=== PATIENT | male | born 1950 | race African-American/Black ===

== ENCOUNTER 2022-04-20 09:38 | Inpatient (IN) | payer MEDICARE ==
--- NOTE | 2022-04-20 10:25 | ED ---
General Adult HPI - General Chief complaint: Headache Stated complaint: Menengitis, Sent from urgent care Time Seen by Provider: 04/20/22 10:03 Source: patient Mode of arrival: ambulatory Limitations: no limitations - History of Present Illness Initial comments: Dictation was produced using [employer] dictation software. please excuse any grammatical, word or spelling errors. Chief Complaint: 71-year-old male past medical history multiple myeloma and alleged 16 bouts of meningitis presents to the emergency room for headache and back pain History of Present Illness: 71-year-old male who states he used to live in [place]. He moved to [place]. He is a poor historian. He is back in town from [place] visiting family. Patient reports that he has headache and back pain when he ambulates. 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 Patient states he had most recently had meningitis in January of this year. Patient states that he has a holocranial headache. He also is having some back pain. States that is worse when the ambulance. Denies any fever or chills or constitutional symptoms. Denies any neck pain or neck stiffness. No numbness and paresthesias to the arms or legs. No vision loss. The ROS documented in this emergency department record has been reviewed and confirmed by me. Those systems with pertinent positive or negative responses have been documented in the HPI. All other systems are other negative and/or noncontributory. PHYSICAL EXAM: General Impression: Alert and oriented x3, not in acute distress HEENT: Normocephalic atraumatic, extra-ocular movements intact, pupils equal and reactive to light bilaterally, mucous membranes moist. 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 Physical examination does not suggest meningitis. is at the bedside. More history obtained from . She reports that patient has in fact had meningitis multiple occasions. She states that his symptoms are typical for when he was diagnosed with meningitis. Patient signed consent for lumbar puncture however during the lumbar puncture set up process he did have lower back surgical incision that appeared to be well-healed. Patient states that he has a story of lumbar fusion. Given history of surgical incision around the area of lumbar puncture site, history of immune compromise did not feel it was safe to perform a lumbar puncture in emergency department at the bedside is significant concern that his symptoms are classic for his usual viral meningitis. Patient started acyclovir. Pending discussion with infectious disease however patient will be admitted with consultation to ID. EKG interpretation: Ventricular rate 91, sinus rhythm . UT interval 207, QRS 105, QTC 406. No UT prolongation, no QTC prolongation. T-wave inversions in lateral precordial leads. No old EKG for comparison. Overall, this EKG is nonspecific - Related Data Home Medications Medication Instructions Recorded Confirmed Acetaminophen [Tylenol Extra 1,000 mg PO Q6H PRN 04/20/22 04/20/22 Strength] Albuterol Inhaler [Ventolin Hfa 2 puff INHALATION RT-Q6H PRN 04/20/22 04/20/22 Inhaler] Aspirin EC [Ecotrin Low Dose] 81 mg PO HS 04/20/22 04/20/22 Cholecalciferol [Vitamin D3 (25 50 mcg PO W/LUNCH 04/20/22 04/20/22 Mcg = 1000 Iu)] DULoxetine HCL [Cymbalta] 60 mg PO DAILY 04/20/22 04/20/22 Insulin Glargine,Hum.rec.anlog 24 units SQ HS 04/20/22 04/20/22 [Lantus Solostar Pen] Insulin Lispro [Insulin Lispro See Protocol SQ AC-TID PRN 04/20/22 04/20/22 Abimael U-100] Losartan [Cozaar] 50 mg PO DAILY 04/20/22 04/20/22 Multivit-Min/Folic/Vit K/Lycop 1 tab PO W/LUNCH 04/20/22 04/20/22 [Men's Multivitamin Tablet] Oxycodone Myristate [Xtampza ER] 27 mg PO BID 04/20/22 04/20/22 Pantoprazole Sodium [Protonix] 40 mg PO DAILY 04/20/22 04/20/22 Pravastatin Sodium [Pravachol] 40 mg PO HS 04/20/22 04/20/22 Pregabalin [Lyrica] 200 mg PO TID 04/20/22 04/20/22 Semaglutide [Ozempic] 1 mg SQ TU 04/20/22 04/20/22 Zinc 50 mg PO W/LUNCH 04/20/22 04/20/22 amLODIPine [Norvasc] 10 mg PO DAILY 04/20/22 04/20/22 oxyCODONE-APAP 10-325MG [Percocet 1 tab PO BID 04/20/22 04/20/22 10-325 mg] oxyCODONE-APAP 10-325MG [Percocet 2 tab PO DAILY@1200 04/20/22 04/20/22 10-325 mg] Allergies Allergy/AdvReac Type Severity Reaction Status Date / Time NSAIDS (Non-Steroidal Allergy Unknown Verified 04/20/22 12:57 Anti-Inflamma Review of Systems ROS Statement: Those systems with pertinent positive or pertinent negative responses have been documented in the HPI. ROS Other: All systems not noted in ROS Statement are negative. Past Medical History Past Medical History: Cancer, Diabetes Mellitus, Hyperlipidemia, Hypertension Additional Past Medical History / Comment(s): Viral Meningitis, multiple myeloma History of Any Multi-Drug Resistant Organisms: None Reported Past Surgical History: Back Surgery, Orthopedic Surgery Additional Past Surgical History / Comment(s): knee surgery Past Psychological History: No Psychological Hx Reported Smoking Status: Current every day smoker Past Alcohol Use History: None Reported Past Drug Use History: None Reported General Exam Limitations: no limitations Course Vital Signs 04/20/22 04/20/22 04/20/22 09:45 10:25 10:30 Temperature 98.4 F 98.1 F Pulse Rate 98 82 85 Respiratory 18 16 16 Rate Blood Pressure 126/71 128/81 128/81 O2 Sat by Pulse 98 97 96 Oximetry 04/20/22 04/20/22 04/20/22 11:00 11:30 12:00 Temperature Pulse Rate 86 87 86 Respiratory 16 16 16 Rate Blood Pressure 138/73 135/81 135/74 O2 Sat by Pulse 97 97 97 Oximetry Medical Decision Making - Lab Data Result diagrams: 04/20/22 10:17 04/20/22 10:17 Lab Results 04/20/22 04/20/22 04/20/22 Range/Units 10:17 10:17 10:17 WBC 5.6 (3.8-10.6) k/uL RBC 3.58 L (4.30-5.90) m/uL Hgb 11.4 L (13.0-17.5) gm/dL Hct 35.9 L (39.0-53.0) % MCV 100.2 H (80.0-100.0) fL MCH 32.0 (25.0-35.0) pg MCHC 31.9 (31.0-37.0) g/dL RDW 14.9 (11.5-15.5) % Plt Count 128 L (150-450) k/uL MPV 8.4 Neutrophils % 63 % Lymphocytes % 24 % Monocytes % 9 % Eosinophils % 1 % Basophils % 1 % Neutrophils # 3.5 (1.3-7.7) k/uL Lymphocytes # 1.4 (1.0-4.8) k/uL Monocytes # 0.5 (0-1.0) k/uL Eosinophils # 0.1 (0-0.7) k/uL Basophils # 0.0 (0-0.2) k/uL Macrocytosis Slight ESR 35 H (0-15) mm/hr PT 10.8 (9.0-12.0) sec INR 1.0 (<1.2) APTT 26.2 (22.0-30.0) sec Sodium 135 L (137-145) mmol/L Potassium 3.8 (3.5-5.1) mmol/L Chloride 101 (98-107) mmol/L Carbon Dioxide 23 (22-30) mmol/L Anion Gap 11 mmol/L BUN 7 L (9-20) mg/dL Creatinine 0.62 L (0.66-1.25) mg/dL Est GFR (CKD-EPI)AfAm >90 (>60 ml/min/1.73 sqM) Est GFR (CKD-EPI)NonAf >90 (>60 ml/min/1.73 sqM) Glucose 148 H (74-99) mg/dL Plasma Lactic Acid Partha (0.7-2.0) mmol/L Calcium 8.6 (8.4-10.2) mg/dL Magnesium 2.1 (1.6-2.3) mg/dL Total Bilirubin 0.9 (0.2-1.3) mg/dL AST 24 (17-59) U/L ALT 14 (4-49) U/L Alkaline Phosphatase 49 (38-126) U/L C-Reactive Protein 1.6 H (<1.0) mg/dL Total Protein 7.0 (6.3-8.2) g/dL Albumin 4.2 (3.5-5.0) g/dL 04/20/22 Range/Units 10:17 WBC (3.8-10.6) k/uL RBC (4.30-5.90) m/uL Hgb (13.0-17.5) gm/dL Hct (39.0-53.0) % MCV (80.0-100.0) fL MCH (25.0-35.0) pg MCHC (31.0-37.0) g/dL RDW (11.5-15.5) % Plt Count (150-450) k/uL MPV Neutrophils % % Lymphocytes % % Monocytes % % Eosinophils % % Basophils % % Neutrophils # (1.3-7.7) k/uL Lymphocytes # (1.0-4.8) k/uL Monocytes # (0-1.0) k/uL Eosinophils # (0-0.7) k/uL Basophils # (0-0.2) k/uL Macrocytosis ESR (0-15) mm/hr PT (9.0-12.0) sec INR (<1.2) APTT (22.0-30.0) sec Sodium (137-145) mmol/L Potassium (3.5-5.1) mmol/L Chloride (98-107) mmol/L Carbon Dioxide (22-30) mmol/L Anion Gap mmol/L BUN (9-20) mg/dL Creatinine (0.66-1.25) mg/dL Est GFR (CKD-EPI)AfAm (>60 ml/min/1.73 sqM) Est GFR (CKD-EPI)NonAf (>60 ml/min/1.73 sqM) Glucose (74-99) mg/dL Plasma Lactic Acid Partha 0.7 (0.7-2.0) mmol/L Calcium (8.4-10.2) mg/dL Magnesium (1.6-2.3) mg/dL Total Bilirubin (0.2-1.3) mg/dL AST (17-59) U/L ALT (4-49) U/L Alkaline Phosphatase (38-126) U/L C-Reactive Protein (<1.0) mg/dL Total Protein (6.3-8.2) g/dL Albumin (3.5-5.0) g/dL Disposition Clinical Impression: Headache, History of viral meningitis Disposition: ADMITTED IP TO THIS HOSP Condition: Fair Referrals: Nonstaff,Physician [Primary Care Provider] - 1-2 days Decision Time: 13:15
[2022-04-20 10:53] LABS: Basophils % (A) 1 %; Eosinophils # (A) 0.1 k/uL (0-0.7); Eosinophils % (A) 1 %; HCT 35.9 % (39.0-53.0); HGB 11.4 gm/dL (13.0-17.5); Lymphocytes # (A) 1.4 k/uL (1.0-4.8); Lymphocytes % (A) 24 %; MCHC 31.9 g/dL (31.0-37.0); MCV 100.2 fL (80.0-100.0); Macrocytosis Slight; Mean Platelet Volume 8.4; Monocytes # (A) 0.5 k/uL (0-1.0); Monocytes % (A) 9 %; Neutrophils # (A) 3.5 k/uL (1.3-7.7); Neutrophils % (A) 63 %; Platelet Count 128 k/uL (150-450); RBC 3.58 m/uL (4.30-5.90); RDW 14.9 % (11.5-15.5); WBC 5.6 k/uL (3.8-10.6)
--- NOTE | 2022-04-20 11:01 | CT ---
EXAMINATION TYPE: CT brain wo con CT DLP: 1151.4 mGycm, Automated exposure control for dose reduction was used. DATE OF EXAM: 04/20/2022 10:56 AM COMPARISON: None. CLINICAL INDICATION:Male, 71 years old with history of headache, PALM, fever, back pain. H/O Meningitis and Mult. Myeloma TECHNIQUE: Brain: Multiple axial CT images of the brain were obtained without IV contrast. Coronal sagittal refo rmats reviewed. FINDINGS: Brain: Extra-axial spaces: No abnormal extra-axial fluid collections. Ventricular system: Within normal limits Cerebral parenchyma: No acute intraparenchymal hemorrhage or mass effect. The billy-white junction is well differentiated. Cerebellum: Unremarkable. Mass effect: No evidence of midline shift. Intracranial vasculature: Atherosclerotic calcifications of the intracranial vessels. Soft tissues: Normal. Calvarium/osseous structures: No depressed skull fracture. Paranasal sinuses and mastoid air cells: Clear. Sclerotic focus within the right frontal sinus likely represents a benign osteoma. Visualized orbits: Right aphakia IMPRESSION: No acute intracranial process.
[2022-04-20 11:06] LABS: ALT 14 U/L (4-49); AST 24 U/L (17-59); African American GFR (CKD) >90 (>60 ml/min/1.73 sqM); Albumin 4.2 g/dL (3.5-5.0); Alkaline Phosphatase 49 U/L (38-126); Anion Gap 11 mmol/L; Blood Urea Nitrogen 7 mg/dL (9-20); C Reactive Protein 1.6 mg/dL (<1.0); Calcium 8.6 mg/dL (8.4-10.2); Carbon Dioxide 23 mmol/L (22-30); Chloride 101 mmol/L (98-107); Glucose 148 mg/dL (74-99); Magnesium 2.1 mg/dL (1.6-2.3); Non-African American GFR(CKD) >90 (>60 ml/min/1.73 sqM); Potassium 3.8 mmol/L (3.5-5.1); Sodium 135 mmol/L (137-145); Total Bilirubin 0.9 mg/dL (0.2-1.3)
[2022-04-20 11:08] LABS: Partial Thromboplastin Time 26.2 sec (22.0-30.0); Prothrombin Time 10.8 sec (9.0-12.0)
--- NOTE | 2022-04-20 11:29 | XR ---
EXAMINATION TYPE: XR spine complete AP and Lat DATE OF EXAM: 04/20/2022 11:14 AM INDICATION: Patient age:Male; 71 years old; Reason for study: back pain; PHH. COMPARISON: Lumbar spine radiograph 10/02/2010 TECHNIQUE: Frontal, lateral, odontoid projections of the cervical spine. Frontal and lateral projecti ons of the thoracic and lumbar spine. FINDINGS: Postsurgical changes with bilateral pedicular screws and rods and disc graphs involving L3-L5. Hardwa re appears intact. No evidence of acute fracture. Vertebral body heights are maintained. Multilevel d isc space narrowing, end plate sclerosis, and osteophytosis involving the cervical, thoracic, and lum bar spine. Odontoid appears intact. Reversal of the normal cervical lordosis. Grade 1 anterolisthesis of L2 on L3. Multilevel facet arthropathy. Vascular sclerosis. Visualized lungs are clear. Right chest port identified with tip terminating at t he superior cavoatrial junction. IMPRESSION: 1. No acute osseous pathology. 2. Moderate degenerative changes of the visualized spine. 3. Postsurgical fusion changes of the lumbar spine from L3 through L5. Hardware appears intact. 4. Grade 1 anterolisthesis of L2 on L3.
[2022-04-20] MEDS ORDERED: ACYCLOVIR 400 MG/10 ML CUP PO SCH (12:15)
[2022-04-20 12:32] LABS: Erythrocyte Sedimentation Rate 35 mm/hr (0-15)
[2022-04-20] MEDS ORDERED: NALOXONE 0.4 MG/ML 1 ML VIAL IV PRN (13:13)
[2022-04-20] MEDS ORDERED: ACETAMINOPHEN TAB 325 MG TAB PO PRN (13:13)
[2022-04-20] MEDS ORDERED: SODIUM CHLORIDE 0.9% 1,000 ML IV STA (13:15)
[2022-04-20] MEDS: SODIUM CHLORIDE 0.9% 1,000 ML IV SCH (14:16)
[2022-04-20] MEDS: ACYCLOVIR SODIUM 800 MG in SODIUM CHLORIDE 0.9% 100 ML IV SCH ×2 (14:16→21:13)
[2022-04-20] MEDS ORDERED: ALBUTEROL NEBULIZED 2.5 MG/3 ML INHALATION PRN (15:16)
[2022-04-20] MEDS: PREGABALIN 100 MG CAP PO SCH ×2 (16:43→21:11)
[2022-04-20] MEDS: ACETAMINOPHEN TAB 500 MG TAB PO PRN (16:43)
--- NOTE | 2022-04-20 19:17 | P.HPIM ---
History of Present Illness H&P Date: 04/20/22 Chief Complaint: Headache 71-year-old male patient with history of multiple myeloma, and history of multiple bouts of meningitis presents to ED with complaint of headache and back pain; patient reports that he used to live in [place] but moved to [place] and is back in town visiting his family; reports that headache and back pain started a couple days ago and gets worse when he ambulates; patient reports that he was diagnosed with viral meningitis on 16 occasions in the past with most recent episode in January of this year Patient denies any fever or chills denies any neck pain or stiffness or any vision changes; no numbness in arms or legs; patient is a very poor historian so most of the history is obtained from records from ER Blood work completed in the ER reveals a WBC of 5.6, hemoglobin of 11.4 and platelet count of 128, sodium 135 culture is intubated, BUN/creatinine of 7/0.6 and blood glucose of 148 X-ray of the spine reveals no acute osseous pathology; moderate degenerative changes along with postsurgical fusion changes of the lumbar spine from L3 through L5 with intact hardware; grade 1 anterolisthesis of L2 and L3 Head CT is negative for any acute intracranial process Lumbar puncture was not attempted in ED due to surgical fusion in the lumbar spine - Patient is admitted to the hospital for further treatment and evaluation by infectious disease Review of Systems REVIEW OF SYSTEMS: CONSTITUTIONAL: No fever, no malaise, no fatigue. HEENT: No recent visual problems or hearing problems. Denied any sore throat. CARDIOVASCULAR: No chest pain, orthopnea, PND, no palpitations, no syncope. PULMONARY: No shortness of breath, no cough, no hemoptysis. GASTROINTESTINAL: No diarrhea, no nausea, no vomiting, no abdominal pain. NEUROLOGICAL: No headaches, no weakness, no numbness. HEMATOLOGICAL: Denies any bleeding or petechiae. GENITOURINARY: Denies any burning micturition, frequency, or urgency. MUSCULOSKELETAL/RHEUMATOLOGICAL: Denies any joint pain, swelling, or any muscle pain. ENDOCRINE: Denies any polyuria or polydipsia. The rest of the 14-point review of systems is negative. Past Medical History Past Medical History: Cancer, Diabetes Mellitus, Hyperlipidemia, Hypertension Additional Past Medical History / Comment(s): Viral Meningitis, multiple myeloma History of Any Multi-Drug Resistant Organisms: None Reported Past Surgical History: Back Surgery, Orthopedic Surgery Additional Past Surgical History / Comment(s): knee surgery Past Psychological History: No Psychological Hx Reported Smoking Status: Current every day smoker Past Alcohol Use History: None Reported Past Drug Use History: None Reported Medications and Allergies Home Medications Medication Instructions Recorded Confirmed Type Acetaminophen [Tylenol Extra 1,000 mg PO Q6H PRN 04/20/22 04/20/22 History Strength] Albuterol Inhaler [Ventolin Hfa 2 puff INHALATION RT-Q6H PRN 04/20/22 04/20/22 History Inhaler] Aspirin EC [Ecotrin Low Dose] 81 mg PO HS 04/20/22 04/20/22 History Cholecalciferol [Vitamin D3 (25 50 mcg PO W/LUNCH 04/20/22 04/20/22 History Mcg = 1000 Iu)] DULoxetine HCL [Cymbalta] 60 mg PO DAILY 04/20/22 04/20/22 History Insulin Glargine,Hum.rec.anlog 24 units SQ HS 04/20/22 04/20/22 History [Lantus Solostar Pen] Insulin Lispro [Insulin Lispro See Protocol SQ AC-TID PRN 04/20/22 04/20/22 History Kwikpen U-100] Losartan [Cozaar] 50 mg PO DAILY 04/20/22 04/20/22 History Multivit-Min/Folic/Vit K/Lycop 1 tab PO W/LUNCH 04/20/22 04/20/22 History [Men's Multivitamin Tablet] Oxycodone Myristate [Xtampza ER] 27 mg PO BID 04/20/22 04/20/22 History Pantoprazole Sodium [Protonix] 40 mg PO DAILY 04/20/22 04/20/22 History Pravastatin Sodium [Pravachol] 40 mg PO HS 04/20/22 04/20/22 History Pregabalin [Lyrica] 200 mg PO TID 04/20/22 04/20/22 History Semaglutide [Ozempic] 1 mg SQ TU 04/20/22 04/20/22 History Zinc 50 mg PO W/LUNCH 04/20/22 04/20/22 History amLODIPine [Norvasc] 10 mg PO DAILY 04/20/22 04/20/22 History oxyCODONE-APAP 10-325MG [Percocet 1 tab PO BID 04/20/22 04/20/22 History 10-325 mg] oxyCODONE-APAP 10-325MG [Percocet 2 tab PO DAILY@1200 04/20/22 04/20/22 History 10-325 mg] Allergies Allergy/AdvReac Type Severity Reaction Status Date / Time NSAIDS (Non-Steroidal Allergy Unknown Verified 04/20/22 12:57 Anti-Inflamma Physical Exam Vitals: Vital Signs Temp Pulse Resp BP Pulse Ox 04/20/22 14:20 90 16 128/68 97 04/20/22 12:00 86 16 135/74 97 04/20/22 11:30 87 16 135/81 97 04/20/22 11:00 86 16 138/73 97 04/20/22 10:30 85 16 128/81 96 04/20/22 10:25 98.1 F 82 16 128/81 97 04/20/22 09:45 98.4 F 98 18 126/71 98 Intake and Output 04/20/22 04/20/22 04/20/22 06:59 14:59 22:59 Other: Weight 87.543 kg General Impression: Alert and oriented x3, not in acute distress HEENT: Normocephalic atraumatic, extra-ocular movements intact, pupils equal and reactive to light bilaterally, mucous membranes moist. Cardiovascular: Heart regular rate and rhythm Chest: Able to complete full sentences, no retractions, no tachypnea Abdomen: abdomen soft, non-tender, non-distended, no organomegaly Musculoskeletal: Pulses present and equal in all extremities, no peripheral edema Motor: no focal deficits noted Neurological: CN II-XII grossly intact, no focal motor or sensory deficits noted, negative Lhermitte's, negative Brudzinski's, negative Kernig's Skin: Intact with no visualized rashes Psych: Normal affect and mood Results CBC & Chem 7: 04/20/22 10:17 04/20/22 10:17 Labs: Abnormal Lab Results - Last 24 Hours (Table) 04/20/22 04/20/22 Range/Units 10:17 10:17 RBC 3.58 L (4.30-5.90) m/uL Hgb 11.4 L (13.0-17.5) gm/dL Hct 35.9 L (39.0-53.0) % MCV 100.2 H (80.0-100.0) fL Plt Count 128 L (150-450) k/uL ESR 35 H (0-15) mm/hr Sodium 135 L (137-145) mmol/L BUN 7 L (9-20) mg/dL Creatinine 0.62 L (0.66-1.25) mg/dL Glucose 148 H (74-99) mg/dL C-Reactive Protein 1.6 H (<1.0) mg/dL Assessment and Plan Assessment: 1. Intractable headache; rule out meningitis - Patient has been placed on IV acyclovir from ED which we will continue; we will observe isolation precautions - Consult ID for evaluation and further recommendations on viral meningitis 2. Diabetes mellitus controlled with insulin/neuropathy; we will continue with home dose of Lantus at 24 units subcu daily at bedtime; monitor Accu-Cheks before meals and at bedtime with insulin sliding scale; - Continue with home dose of Lyrica at 200 mg by mouth 3 times a day 3. Hypertension; amlodipine 10 mg daily, losartan 50 mg daily 4. History of multiple myeloma; absent patient follow-up DVT prophylaxis; SCDs CODE STATUS; full
[2022-04-20 19:20] LABS: Appearance,CSF Clear; CSF Tube Number 4; CSF Tube Volume 2; Red Blood Cell,CSF 8 u/L (0-10)
[2022-04-20 19:21] LABS: Nucleated Cells, CSF 318 u/L (0-5)
--- NOTE | 2022-04-20 19:27 | P.PCN ---
Date of Procedure: 04/20/22 Procedure(s) Performed: Preoperative diagnosis: Meningitis Post operative diagnoses: Meningitis Procedure= lumbar puncture Anesthesia= local infiltration with lidocaine 1% 3 mL. Condition: Guarded Complication: none. Description of the procedure procedure risk and benefits discussed with the patient and family, consent signed. Patient and the procedure area placed in sitting position, back prepped with chlorhexidine 3 times been local infiltration of the skin and subcutaneous tissue with lidocaine 1% 3 mL for skin and subcu interstitial frustrations at L4 5 levels then 22-gauge Quincke-type needle advanced slowly at L4- 5 interlaminar space there was positive cerebrospinal fluid which was clear, no heme, no paresthesia ,total of 8 ML of clear cerebrospinal fluid collected in 4 different tubes 2 mL in each, then the needle removed and a Band-Aid applied and patient tolerated the procedure well without any complications.
[2022-04-20 19:37] LABS: Glucose,CSF 49 mg/dL (40-70); Total Protein,CSF 201 mg/dL (12-60)
[2022-04-20 19:48] LABS: Diff, Total Cells Cnt, CSF 100; Mononuclear WBC,CSF 95 %; Polynuclear WBC,CSF 5 %
[2022-04-20] MEDS ORDERED: OXYCODONE MYRISTATE 27 MG PO SCH (21:00)
[2022-04-20] MEDS: OXYCODONE MYRISTATE 27 MG PO SCH (21:11)
[2022-04-20] MEDS: PRAVASTATIN SODIUM 40 MG TAB PO SCH (21:11)
[2022-04-20] MEDS: ASPIRIN 81 MG PO SCH (21:11)
[2022-04-20] MEDS: INSULIN DETEMIR (LEVEMIR) 100 UNIT/ML SYR SQ SCH (21:12)
[2022-04-20] MEDS: oxyCODONE-APAP 10-325MG 1 EACH TAB PO SCH (21:13)
[2022-04-20 21:23] LABS: Glucose,Whole Blood 124 mg/dL (70-110)
--- NOTE | 2022-04-20 23:24 | P.CONS ---
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 last episode has been about a month ago for the patient was treated at [place], patient has been brought back to the [place] and apparently has been feeling weak complaining of headache and becoming lethargic and less responsive for the patient was brought into the hospital concerning for another episode of meningitis there is history of a low-grade fever and the patient did have a temperature of 100.5 F this afternoon, patient did have a normal white count creatinine was normal liver enzymes were normal patient did have a CT of the brain that was negative for any bleed patient was empirically started on acyclovir has been admitted to hospital infectious disease was consulted for further management of antibiotic therapy most of the information has been obtained from talking to the as the patient was elevated good historian Review of Systems Positive points has been mentioned in HPI complete review could not be obtained because of his underlying mental status Past Medical History Past Medical History: Cancer, Diabetes Mellitus, Hyperlipidemia, Hypertension Additional Past Medical History / Comment(s): Viral Meningitis, multiple myeloma History of Any Multi-Drug Resistant Organisms: None Reported Past Surgical History: Back Surgery, Orthopedic Surgery Additional Past Surgical History / Comment(s): knee surgery Past Psychological History: No Psychological Hx Reported Smoking Status: Current every day smoker Past Alcohol Use History: None Reported Past Drug Use History: None Reported Medications and Allergies Home Medications Medication Instructions Recorded Confirmed Type Acetaminophen [Tylenol Extra 1,000 mg PO Q6H PRN 04/20/22 04/20/22 History Strength] Albuterol Inhaler [Ventolin Hfa 2 puff INHALATION RT-Q6H PRN 04/20/22 04/20/22 History Inhaler] Aspirin EC [Ecotrin Low Dose] 81 mg PO HS 04/20/22 04/20/22 History Cholecalciferol [Vitamin D3 (25 50 mcg PO W/LUNCH 04/20/22 04/20/22 History Mcg = 1000 Iu)] DULoxetine HCL [Cymbalta] 60 mg PO DAILY 04/20/22 04/20/22 History Insulin Glargine,Hum.rec.anlog 24 units SQ HS 04/20/22 04/20/22 History [Lantus Solostar Pen] Insulin Lispro [Insulin Lispro See Protocol SQ AC-TID PRN 04/20/22 04/20/22 History Kwikpen U-100] Losartan [Cozaar] 50 mg PO DAILY 04/20/22 04/20/22 History Multivit-Min/Folic/Vit K/Lycop 1 tab PO W/LUNCH 04/20/22 04/20/22 History [Men's Multivitamin Tablet] Oxycodone Myristate [Xtampza ER] 27 mg PO BID 04/20/22 04/20/22 History Pantoprazole Sodium [Protonix] 40 mg PO DAILY 04/20/22 04/20/22 History Pravastatin Sodium [Pravachol] 40 mg PO HS 04/20/22 04/20/22 History Pregabalin [Lyrica] 200 mg PO TID 04/20/22 04/20/22 History Semaglutide [Ozempic] 1 mg SQ TU 04/20/22 04/20/22 History Zinc 50 mg PO W/LUNCH 04/20/22 04/20/22 History amLODIPine [Norvasc] 10 mg PO DAILY 04/20/22 04/20/22 History oxyCODONE-APAP 10-325MG [Percocet 1 tab PO BID 04/20/22 04/20/22 History 10-325 mg] oxyCODONE-APAP 10-325MG [Percocet 2 tab PO DAILY@1200 04/20/22 04/20/22 History 10-325 mg] Allergies Allergy/AdvReac Type Severity Reaction Status Date / Time NSAIDS (Non-Steroidal Allergy Unknown Verified 04/20/22 12:57 Anti-Inflamma Physical Exam Vitals: Vital Signs Temp Pulse Resp BP Pulse Ox 04/20/22 14:20 90 16 128/68 97 04/20/22 12:00 86 16 135/74 97 04/20/22 11:30 87 16 135/81 97 04/20/22 11:00 86 16 138/73 97 04/20/22 10:30 85 16 128/81 96 04/20/22 10:25 98.1 F 82 16 128/81 97 09/04/22 09:45 98.4 F 98 18 126/71 98 Intake and Output 04/20/22 04/20/22 04/20/22 06:59 14:59 22:59 Other: Weight 87.543 kg GENERAL DESCRIPTION: Elderly male lying in bed, no distress. No tachypnea or accessory muscle of respiration use. HEENT: Shows Pallor , no scleral icterus. Oral mucous membrane is dry. No ph aryngeal erythema or thrush NECK: Trachea central, no thyromegaly. LUNGS: Unlabored breathing. Clear to auscultation anteriorly. No wheeze or crackle. HEART: S1, S2, regular rate and rhythm. No loud murmur ABDOMEN: Soft, no tenderness , guarding or rigidity, no organomegaly EXTREMITIES: No edema of feet. SKIN: No rash, no masses palpable. NEUROLOGICAL: The patient is lethargic orientation couldn't be determined Results CBC & Chem 7: 04/20/22 10:17 04/20/22 10:17 Labs: Abnormal Lab Results - Last 24 Hours (Table) 04/20/22 04/20/22 Range/Units 10:17 10:17 RBC 3.58 L (4.30-5.90) m/uL Hgb 11.4 L (13.0-17.5) gm/dL Hct 35.9 L (39.0-53.0) % MCV 100.2 H (80.0-100.0) fL Plt Count 128 L (150-450) k/uL ESR 35 H (0-15) mm/hr Sodium 135 L (137-145) mmol/L BUN 7 L (9-20) mg/dL Creatinine 0.62 L (0.66-1.25) mg/dL Glucose 148 H (74-99) mg/dL C-Reactive Protein 1.6 H (<1.0) mg/dL Assessment and Plan Plan: 1patient presented to hospital with a low-grade fever headache in this patient who do have a 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 2we will obtain anesthesia consult to obtain CSF examination which should be sent for glucose protein cell count differential and HSV DNA by PCR 3continue with empiric acyclovir while waiting for the work-up to be completed We will follow on clinical condition and cultures to further adjust medication if needed Thank you for this consultation will follow this patient along with you Time with Patient: Greater than 30
[2022-04-21] MEDS: ACYCLOVIR SODIUM 800 MG in SODIUM CHLORIDE 0.9% 100 ML IV SCH ×3 (05:34→21:50)
[2022-04-21] MEDS: ACETAMINOPHEN TAB 500 MG TAB PO PRN ×2 (05:34→17:04)
[2022-04-21 06:54] LABS: ALT 13 U/L (4-49); AST 21 U/L (17-59); African American GFR (CKD) >90 (>60 ml/min/1.73 sqM); Albumin 3.8 g/dL (3.5-5.0); Albumin/Globulin Ratio 1.4; Alkaline Phosphatase 50 U/L (38-126); Anion Gap 10 mmol/L; Blood Urea Nitrogen 8 mg/dL (9-20); C Reactive Protein 1.3 mg/dL (<1.0); Calcium 8.2 mg/dL (8.4-10.2); Carbon Dioxide 23 mmol/L (22-30); Chloride 103 mmol/L (98-107); Globulin 2.7 g/dL; Glucose 158 mg/dL (74-99); Non-African American GFR(CKD) >90 (>60 ml/min/1.73 sqM); Potassium 3.4 mmol/L (3.5-5.1); Sodium 136 mmol/L (137-145); Total Bilirubin 0.7 mg/dL (0.2-1.3); Total Protein 6.5 g/dL (6.3-8.2)
[2022-04-21 07:19] LABS: Glucose,Whole Blood 139 mg/dL (70-110)
[2022-04-21 09:15] LABS: Basophils # (A) 0.04 X 10*3/uL (0.00-0.10); Basophils % (A) 0.8 %; Eosinophils # (A) 0.07 X 10*3/uL (0.04-0.35); Eosinophils % (A) 1.3 %; HCT 32.9 % (39.6-50.0); HGB 10.9 g/dL (13.0-17.0); Immature Grans, Automated 0.2 %; Lymphocytes # (A) 1.26 X 10*3/uL (0.90-5.00); Lymphocytes % (A) 23.8 %; MCH 32.5 pg (27.0-32.0); MCHC 33.1 g/dL (32.0-37.0); MCV 98.2 fL (80.0-97.0); Mean Platelet Volume 10.6 fL (9.5-12.2); Monocytes # (A) 0.47 X 10*3/uL (0.20-1.00); Monocytes % (A) 8.9 %; NRBC Per 100 WBC 0 /100 WBCS (0.0-0.0); Neutrophils # (A) 3.45 X 10*3/uL (1.80-7.70); Platelet Count 132 X 10*3/uL (140-440); RBC 3.35 X 10*6/uL (4.40-5.60); RDW 14.9 % (11.5-14.5)
[2022-04-21] MEDS: OXYCODONE MYRISTATE 27 MG PO SCH ×2 (09:22→21:51)
[2022-04-21] MEDS: DULoxetine HCL 60 MG CAPSULE.DR PO SCH (09:22)
[2022-04-21] MEDS: LOSARTAN 50 MG TAB PO SCH (09:22)
[2022-04-21] MEDS: PANTOPRAZOLE 40 MG TABLET PO SCH (09:23)
[2022-04-21] MEDS: PREGABALIN 100 MG CAP PO SCH ×3 (09:23→21:50)
[2022-04-21] MEDS: amLODIPine 10 MG TAB PO SCH (09:23)
[2022-04-21] MEDS: oxyCODONE-APAP 10-325MG 1 EACH TAB PO SCH ×3 (09:23→21:52)
[2022-04-21] MEDS ORDERED: Potassium Replacement Protocol 1 EACH MISC MISCELLANE PRN (09:44)
[2022-04-21 11:52] LABS: Glucose,Whole Blood 204 mg/dL (70-110)
[2022-04-21] MEDS: MULTIVITAMINS, THERA 1 EACH TAB PO SCH (12:30)
[2022-04-21] MEDS: ZINC SULFATE 220 MG CAP PO SCH (12:30)
[2022-04-21] MEDS: CHOLECALCIFEROL 25 MCG (1000 IU) TABLET PO SCH (12:31)
[2022-04-21] MEDS: POTASSIUM CHLORIDE ER 20 MEQ TAB.ER PO SCH ×3 (12:31→17:04)
[2022-04-21] MEDS ORDERED: DOCUSATE 100 MG CAP PO PRN (14:14)
--- NOTE | 2022-04-21 14:15 | P.PN ---
Subjective Progress Note Date: 04/21/22 71-year-old male patient with history of multiple myeloma, and history of multiple bouts of meningitis presents to ED with complaint of headache and back pain; patient reports that he used to live in [place] but moved to [place] and is back in town visiting his family; reports that headache and back pain started a couple days ago and gets worse when he ambulates; patient reports that he was diagnosed with viral meningitis on 16 occasions in the past with most recent episode in January of this year Patient denies any fever or chills denies any neck pain or stiffness or any vision changes; no numbness in arms or legs; patient is a very poor historian so most of the history is obtained from records from ER Blood work completed in the ER reveals a WBC of 5.6, hemoglobin of 11.4 and platelet count of 128, sodium 135 culture is intubated, BUN/creatinine of 7/0.6 and blood glucose of 148 X-ray of the spine reveals no acute osseous pathology; moderate degenerative changes along with postsurgical fusion changes of the lumbar spine from L3 through L5 with intact hardware; grade 1 anterolisthesis of L2 and L3 Head CT is negative for any acute intracranial process Lumbar puncture was not attempted in ED due to surgical fusion in the lumbar spine - Patient is admitted to the hospital for further treatment and evaluation by infectious disease 04/21/2022 Patient sitting up at bedside today with family at bedside. His medical care is usually in [place]. His PCP is Dr Nicolasa Reyes. He was recently treated in January for viral meningitis and patient and feel he may have been taken off meds to soon, states he usually has about 18 months between relapses. He reports he notices gait dysfunction with parasthesias/numbness which he currently states has improved. He is status post lumbar puncture with reports currently pending at this time. Labs today showing no white count, hgb 10.9, platelet count of 132. He does have potassium level of 3.4 and will receive electrolyte replacemen t. Patient is supposed to travel back to [place] on Thursday. He continues on IV acyclovir. Patient states pain management at this time is currently working. His infectious disease specialist in [place] is Lay Lundy and he also see Dr Jose Lind. Review of Systems Constitutional: Denied any fatigue denied any fever. Cardio vascular: denied any chest pain, palpitations Gastrointestinal: denied any nausea, vomiting, diarrhea Pulmonary: Denied any shortness of breath cough Neurologic denied any new focal deficits All inpatient medications were reviewed and appropriate changes in these medications as dictated in the interval history and assessment and plan. PHYSICAL EXAMINATION: GENERAL: The patient is alert and oriented x3, not in any acute distress. Well developed, well nourished. HEENT: Pupils are round and equally reacting to light. EOMI. No scleral icterus. No conjunctival pallor. Normocephalic, atraumatic. No pharyngeal erythema. No thyromegaly. CARDIOVASCULAR: S1 and S2 present. No murmurs, rubs, or gallops. PULMONARY: Chest is clear to auscultation, no wheezing or crackles. ABDOMEN: Soft, nontender, nondistended, normoactive bowel sounds. No palpable organomegaly. MUSCULOSKELETAL: No joint swelling or deformity. EXTREMITIES: No cyanosis, clubbing, or pedal edema. NEUROLOGICAL: Gross neurological examination did not reveal any focal deficits. Generalized weakness. SKIN: No rashes. Assessment and Plan Assessment Intractible headache rule out meningitis patient is status post lumbar puncture awaiting results. States headache is chronic and currently not an issue. Hyponatremia, hypovolemic patient with poor oral intake, improving Hypokalemia secondary to poor oral intake Diabetes Mellitus controlled with insulin Diabetic neuropathy Hypertension History of multiple myeloma GI prophylaxis Protonix DVT prophylaxis SCDs Full code Plan Continue IV acyclovir Patient continues on oral chemotherapy Pending LP results Pain management, bowel regimen Replace electrolytes repeat labs in a.m. The impression and plan of care has been dictated by Silvia Brock, Nurse Practitioner as directed. Dr. Liz MD I have performed a history and physical examination and medical decision making of this patient, discussed the same with the dictator, and agree with the dictators assessment and plan as written, documented as a scribe. Based on total visit time, I have performed more than 50% of this visit. Objective - Vital Signs Vital signs: Vital Signs Temp 98.8 F 04/21/22 06:18 Pulse 94 04/21/22 04:56 Resp 15 04/21/22 04:56 BP 129/64 04/21/22 04:56 Pulse Ox 97 04/21/22 04:56 FiO2 Intake & Output 04/20/22 04/21/22 04/21/22 18:59 06:59 18:59 Intake Total 160 Balance 160 Weight 87.543 kg Intake: Intake, IV Titration 160 Amount Acyclovir Sodium 800 mg 100 In Sodium Chloride 0.9% 100 ml @ 100 mls/hr IV Q8H [facility] Rx#:[id number] Sodium Chloride 0.9% 1, 60 000 ml @ 20 mls/hr IV . Q24H [facility] Rx#:[id number] Other: Voiding Method Urinal Toilet Urinal # Voids 1 - Labs CBC & Chem 7: 04/21/22 05:37 04/21/22 05:37 Labs: Abnormal Lab Results - Last 24 Hours (Table) 04/20/22 04/20/22 04/20/22 Range/Units 10:17 10:17 18:57 RBC 3.58 L (4.30-5.90) m/uL Hgb 11.4 L (13.0-17.5) gm/dL Hct 35.9 L (39.0-53.0) % MCV 100.2 H (80.0-100.0) fL MCH (27.0-32.0) pg RDW (11.5-14.5) % Plt Count 128 L (150-450) k/uL ESR 35 H (0-15) mm/hr Sodium 135 L (137-145) mmol/L Potassium (3.5-5.1) mmol/L BUN 7 L (9-20) mg/dL Creatinine 0.62 L (0.66-1.25) mg/dL Glucose 148 H (74-99) mg/dL POC Glucose (mg/dL) (70-110) mg/dL Calcium (8.4-10.2) mg/dL C-Reactive Protein 1.6 H (<1.0) mg/dL CSF Tot Nucleated Cells 318 H* (0-5) u/L CSF Total Protein 201 H (12-60) mg/dL 04/20/22 04/21/22 04/21/22 Range/Units 21:21 05:37 05:37 RBC 3.35 L (4.30-5.90) m/uL Hgb 10.9 L (13.0-17.5) gm/dL Hct 32.9 L (39.0-53.0) % MCV 98.2 H (80.0-100.0) fL MCH 32.5 H (27.0-32.0) pg RDW 14.9 H (11.5-14.5) % Plt Count 132 L (150-450) k/uL ESR (0-15) mm/hr Sodium 136 L (137-145) mmol/L Potassium 3.4 L (3.5-5.1) mmol/L BUN 8 L (9-20) mg/dL Creatinine 0.57 L (0.66-1.25) mg/dL Glucose 158 H (74-99) mg/dL POC Glucose (mg/dL) 124 H (70-110) mg/dL Calcium 8.2 L (8.4-10.2) mg/dL C-Reactive Protein 1.3 H (<1.0) mg/dL CSF Tot Nucleated Cells (0-5) u/L CSF Total Protein (12-60) mg/dL 04/21/22 Range/Units 07:17 RBC (4.30-5.90) m/uL Hgb (13.0-17.5) gm/dL Hct (39.0-53.0) % MCV (80.0-100.0) fL MCH (27.0-32.0) pg RDW (11.5-14.5) % Plt Count (150-450) k/uL ESR (0-15) mm/hr Sodium (137-145) mmol/L Potassium (3.5-5.1) mmol/L BUN (9-20) mg/dL Creatinine (0.66-1.25) mg/dL Glucose (74-99) mg/dL POC Glucose (mg/dL) 139 H (70-110) mg/dL Calcium (8.4-10.2) mg/dL C-Reactive Protein (<1.0) mg/dL CSF Tot Nucleated Cells (0-5) u/L CSF Total Protein (12-60) mg/dL Microbiology - Last 24 Hours (Table) 04/20/22 18:57 CSF Culture - Preliminary Cerebral Spinal Fluid Assessment and Plan Time with Patient: Less than 30
[2022-04-21] MEDS: SODIUM CHLORIDE 0.9% 1,000 ML IV SCH (14:27)
[2022-04-21 17:02] LABS: Glucose,Whole Blood 143 mg/dL (70-110)
[2022-04-21 20:11] LABS: Glucose,Whole Blood 182 mg/dL (70-110)
[2022-04-21] MEDS: PRAVASTATIN SODIUM 40 MG TAB PO SCH (21:50)
[2022-04-21] MEDS: ASPIRIN 81 MG PO SCH (21:50)
[2022-04-21] MEDS: INSULIN DETEMIR (LEVEMIR) 100 UNIT/ML SYR SQ SCH (21:50)
[2022-04-22] MEDS: ACETAMINOPHEN TAB 500 MG TAB PO PRN (02:35)
[2022-04-22] MEDS: ACYCLOVIR SODIUM 800 MG in SODIUM CHLORIDE 0.9% 100 ML IV SCH ×3 (06:07→21:14)
[2022-04-22 07:14] LABS: Glucose,Whole Blood 105 mg/dL (70-110)
[2022-04-22] MEDS ORDERED: SEMAGLUTIDE 1 MG/0.75 ML SQ SCH (09:00)
[2022-04-22] MEDS: PANTOPRAZOLE 40 MG TABLET PO SCH (09:04)
[2022-04-22] MEDS: oxyCODONE-APAP 10-325MG 1 EACH TAB PO SCH ×3 (09:04→21:15)
[2022-04-22] MEDS: PREGABALIN 100 MG CAP PO SCH ×3 (09:04→21:15)
[2022-04-22] MEDS: DULoxetine HCL 60 MG CAPSULE.DR PO SCH (09:06)
[2022-04-22] MEDS: LOSARTAN 50 MG TAB PO SCH (09:06)
[2022-04-22] MEDS: amLODIPine 10 MG TAB PO SCH (09:06)
[2022-04-22] MEDS: OXYCODONE MYRISTATE 27 MG PO SCH ×2 (09:29→21:16)
[2022-04-22 09:33] LABS: Anion Gap 9.5 mmol/L (10.00-18.00); Blood Urea Nitrogen 5.6 mg/dL (9.0-27.0); Calcium 8.3 mg/dL (8.7-10.3); Carbon Dioxide 23.5 mmol/L (20.0-27.5); Non-African American GFR(CKD) 94.9 (60.0-200.0); Potassium 3.5 mmol/L (3.5-5.5)
[2022-04-22 11:45] LABS: Glucose,Whole Blood 123 mg/dL (70-110)
[2022-04-22 13:18] LABS: HSV I IgG Interp NEGATIVE (NEGATIVE); HSV II IgG Interp POSITIVE (NEGATIVE)
[2022-04-22 13:38] LABS: HIV 2 AB Non-Reactive (Non-Reactive); HIV AB P24 Non-Reactive (Non-Reactive); HIV P24 AG Non-Reactive (Non-Reactive)
[2022-04-22 19:17] LABS: Glucose,Whole Blood 270 mg/dL (70-110)
[2022-04-22] MEDS ORDERED: DEXTROSE 50% SYRINGE 50 ML IVP PRN ×2 (19:19)
[2022-04-22] MEDS: MULTIVITAMINS, THERA 1 EACH TAB PO SCH (19:51)
[2022-04-22] MEDS: ZINC SULFATE 220 MG CAP PO SCH (19:51)
[2022-04-22] MEDS: SODIUM CHLORIDE 0.9% 1,000 ML IV SCH (19:51)
[2022-04-22] MEDS: CHOLECALCIFEROL 25 MCG (1000 IU) TABLET PO SCH (19:51)
[2022-04-22 20:20] LABS: Glucose,Whole Blood 179 mg/dL (70-110)
[2022-04-22] MEDS: ASPIRIN 81 MG PO SCH (21:15)
[2022-04-22] MEDS: INSULIN DETEMIR (LEVEMIR) 100 UNIT/ML SYR SQ SCH (21:16)
[2022-04-22] MEDS: PRAVASTATIN SODIUM 40 MG TAB PO SCH (21:17)
[2022-04-22] MEDS: INSULIN ASPART (NovoLOG) 100 UNIT/ML VIAL SQ SCH (21:18)
[2022-04-23] MEDS: ACETAMINOPHEN TAB 500 MG TAB PO PRN (04:10)
[2022-04-23] MEDS: ACYCLOVIR SODIUM 800 MG in SODIUM CHLORIDE 0.9% 100 ML IV SCH ×2 (04:11→12:53)
[2022-04-23 06:25] VITALS: PULSE 92
[2022-04-23 07:10] LABS: Glucose,Whole Blood 129 mg/dL (70-110)
[2022-04-23] MEDS: INSULIN ASPART (NovoLOG) 100 UNIT/ML VIAL SQ SCH ×3 (07:36→17:42)
[2022-04-23] MEDS: PANTOPRAZOLE 40 MG TABLET PO SCH (07:44)
[2022-04-23] MEDS: PREGABALIN 100 MG CAP PO SCH ×2 (07:44→17:42)
[2022-04-23] MEDS: DULoxetine HCL 60 MG CAPSULE.DR PO SCH (07:44)
[2022-04-23] MEDS: LOSARTAN 50 MG TAB PO SCH (07:44)
[2022-04-23] MEDS: amLODIPine 10 MG TAB PO SCH (07:44)
[2022-04-23] MEDS: oxyCODONE-APAP 10-325MG 1 EACH TAB PO SCH ×2 (07:45→11:58)
[2022-04-23 08:09] VITALS: BP 120/68; RESP 17; TEMP 96.4
[2022-04-23] MEDS: OXYCODONE MYRISTATE 27 MG PO SCH (09:05)
[2022-04-23 09:15] LABS: Basophils # (A) 0.05 X 10*3/uL (0.00-0.10); Eosinophils # (A) 0.11 X 10*3/uL (0.04-0.35); Eosinophils % (A) 2.3 %; HCT 32.3 % (39.6-50.0); HGB 11.1 g/dL (13.0-17.0); Immature Grans, Automated 0 %; Lymphocytes # (A) 1.68 X 10*3/uL (0.90-5.00); Lymphocytes % (A) 35.1 %; MCH 33.3 pg (27.0-32.0); MCHC 34.4 g/dL (32.0-37.0); Mean Platelet Volume 10.4 fL (9.5-12.2); Monocytes # (A) 0.45 X 10*3/uL (0.20-1.00); Monocytes % (A) 9.4 %; NRBC Per 100 WBC 0 /100 WBCS (0.0-0.0); Neutrophils % (A) 52.2 %; Platelet Count 143 X 10*3/uL (140-440); RBC 3.33 X 10*6/uL (4.40-5.60); WBC 4.79 X 10*3/uL (4.50-10.00)
[2022-04-23 09:30] LABS: African American GFR (CKD) 118.1 (60.0-200.0); Anion Gap 9.8 mmol/L (10.00-18.00); BUN/Creat Ratio 12.77 Ratio (12.00-20.00); Blood Urea Nitrogen 7.5 mg/dL (9.0-27.0); Calcium 8.4 mg/dL (8.7-10.3); Carbon Dioxide 23.8 mmol/L (20.0-27.5); Non-African American GFR(CKD) 101.9 (60.0-200.0); Potassium 3.6 mmol/L (3.5-5.5)
[2022-04-23 11:17] LABS: Glucose,Whole Blood 284 mg/dL (70-110)
[2022-04-23] MEDS: CHOLECALCIFEROL 25 MCG (1000 IU) TABLET PO SCH (11:58)
[2022-04-23] MEDS: ZINC SULFATE 220 MG CAP PO SCH (11:58)
[2022-04-23] MEDS: MULTIVITAMINS, THERA 1 EACH TAB PO SCH (11:58)
--- NOTE | 2022-04-23 14:36 | P.PN ---
Subjective Progress Note Date: 04/21/22 Principal diagnosis: Viral Meningitis Patient is a 71-year-old -Citizen Of [place] male with a past medical he significant for multiple myeloma on chemotherapy patient also have a history of recurrent viral meningitis thought to be related to HSV with the last episode in January 2022, presented to the hospital with the headache not feeling well patient subsequently have low-grade fever did have a positive CSF exam concerning for viral meningitis. On today's evaluation that is 04/21/2022, patient did have a fever of 100.7 earlier this morning the patient is afebrile since then, patient is breathing comfortably and is more awake and alert patient headache has improved no nausea no vomiting no chest pain shortness of breath or cough no diarrhea Objective - Vital Signs Vital signs: Vital Signs Temp 98.8 F 04/21/22 18:04 Pulse 99 04/21/22 18:04 Resp 16 04/21/22 18:04 BP 115/71 04/21/22 18:04 Pulse Ox 98 04/21/22 18:04 FiO2 Intake & Output 04/21/22 04/21/22 04/22/22 06:59 18:59 06:59 Intake Total 340 Balance 340 Intake: Intake, IV Titration 340 Amount Acyclovir Sodium 800 mg 100 In Sodium Chloride 0.9% 100 ml @ 100 mls/hr IV Q8H [facility] Rx#:[id number] Sodium Chloride 0.9% 1, 240 000 ml @ 20 mls/hr IV . Q24H [facility] Rx#:[id number] Other: Voiding Method Toilet Urinal # Voids 1 - Exam GENERAL DESCRIPTION: Elderly male lying in bed, no distress. No tachypnea or accessory muscle of respiration use. LUNGS: Unlabored breathing. Clear to auscultation anteriorly. No wheeze or crackle. HEART: S1, S2, regular rate and rhythm. No loud murmur ABDOMEN: Soft, no tenderness , guarding or rigidity, no organomegaly EXTREMITIES: No edema of feet. - Labs CBC & Chem 7: 04/23/22 05:25 04/23/22 05:25 Labs: Abnormal Lab Results - Last 24 Hours (Table) 04/21/22 04/21/22 04/21/22 Range/Units 05:37 05:37 07:17 RBC 3.35 L (4.40-5.60) X 10*6/uL Hgb 10.9 L (13.0-17.0) g/dL Hct 32.9 L (39.6-50.0) % MCV 98.2 H (80.0-97.0) fL MCH 32.5 H (27.0-32.0) pg RDW 14.9 H (11.5-14.5) % Plt Count 132 L (140-440) X 10*3/uL Sodium 136 L (137-145) mmol/L Potassium 3.4 L (3.5-5.1) mmol/L BUN 8 L (9-20) mg/dL Creatinine 0.57 L (0.66-1.25) mg/dL Glucose 158 H (74-99) mg/dL POC Glucose (mg/dL) 139 H (70-110) mg/dL Calcium 8.2 L (8.4-10.2) mg/dL C-Reactive Protein 1.3 H (<1.0) mg/dL 04/21/22 04/21/22 04/21/22 Range/Units 11:50 17:00 20:10 RBC (4.40-5.60) X 10*6/uL Hgb (13.0-17.0) g/dL Hct (39.6-50.0) % MCV (80.0-97.0) fL MCH (27.0-32.0) pg RDW (11.5-14.5) % Plt Count (140-440) X 10*3/uL Sodium (137-145) mmol/L Potassium (3.5-5.1) mmol/L BUN (9-20) mg/dL Creatinine (0.66-1.25) mg/dL Glucose (74-99) mg/dL POC Glucose (mg/dL) 204 H 143 H 182 H (70-110) mg/dL Calcium (8.4-10.2) mg/dL C-Reactive Protein (<1.0) mg/dL Microbiology - Last 24 Hours (Table) 04/20/22 18:57 CSF Culture - Preliminary Cerebral Spinal Fluid Assessment and Plan (1) Viral meningitis Current Visit: Yes Status: Acute Code(s): A87.9 - VIRAL MENINGITIS, UNSPECIFIED SNOMED Code(s): 70557154 Plan: 1patient presented to hospital with a low-grade fever headache in this patient who do have a 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 2patient did have an LP completed last evening patient did have a normal glucose protein is elevated white count is elevated HSV DNA by PCR is pending. 3patient seem to have shown clinical improvement with IV acyclovir which will be continued while awaiting further work-up to be completed Time with Patient: Less than 30
--- NOTE | 2022-04-23 14:38 | P.PN ---
Subjective Progress Note Date: 04/22/22 Principal diagnosis: Viral Meningitis Patient is a 71-year-old -Citizen Of [place] male with a past medical he significant for multiple myeloma on chemotherapy patient also have a history of recurrent viral meningitis thought to be related to HSV with the last episode in January 2022, presented to the hospital with the headache not feeling well patient subsequently have low-grade fever did have a positive CSF exam concerning for viral meningitis. On today's evaluation that is 04/22/2022, The patient remains to be afebrile, the patient is breathing comfortably on room air, the patient headache has significantly decreased denies any chest pain shortness of breath or cough no nausea vomiting no abdominal pain no diarrhea Objective - Vital Signs Vital signs: Vital Signs Temp 98.1 F 04/22/22 05:00 Pulse 94 04/22/22 08:00 Resp 18 04/22/22 08:00 BP 145/78 04/22/22 05:00 Pulse Ox 98 04/22/22 05:00 FiO2 Intake & Output 04/21/22 04/22/22 04/22/22 18:59 06:59 18:59 Intake Total 340 280 Balance 340 280 Intake: Intake, IV Titration 340 280 Amount Acyclovir Sodium 800 mg 100 200 In Sodium Chloride 0.9% 100 ml @ 100 mls/hr IV Q8H [facility] Rx#:[id number] Sodium Chloride 0.9% 1, 240 80 000 ml @ 20 mls/hr IV . Q24H [facility] Rx#:[id number] Other: Voiding Method Toilet Toilet - Exam GENERAL DESCRIPTION: Elderly male lying in bed, no distress. No tachypnea or accessory muscle of respiration use. LUNGS: Unlabored breathing. Clear to auscultation anteriorly. No wheeze or crackle. HEART: S1, S2, regular rate and rhythm. No loud murmur ABDOMEN: Soft, no tenderness , guarding or rigidity, no organomegaly EXTREMITIES: No edema of feet. - Labs CBC & Chem 7: 04/23/22 05:25 04/23/22 05:25 Labs: Abnormal Lab Results - Last 24 Hours (Table) 04/21/22 04/21/22 04/21/22 Range/Units 11:50 17:00 20:10 Anion Gap (10.00-18.00) mmol/L BUN (9.0-27.0) mg/dL BUN/Creatinine Ratio (12.00-20.00) Ratio POC Glucose (mg/dL) 204 H 143 H 182 H (70-110) mg/dL Calcium (8.7-10.3) mg/dL 04/22/22 Range/Units 06:10 Anion Gap 9.50 L (10.00-18.00) mmol/L BUN 5.6 L (9.0-27.0) mg/dL BUN/Creatinine Ratio 8.00 L (12.00-20.00) Ratio POC Glucose (mg/dL) (70-110) mg/dL Calcium 8.3 L (8.7-10.3) mg/dL Microbiology - Last 24 Hours (Table) 04/20/22 18:57 CSF Gram Stain - Preliminary Cerebral Spinal Fluid CSF Culture - Preliminary Assessment and Plan (1) Viral meningitis Current Visit: Yes Status: Acute Code(s): A87.9 - VIRAL MENINGITIS, UNSPECIFIED SNOMED Code(s): 56367695 Plan: 1patient presented to hospital with a low-grade fever headache in this patient who do have a 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 2patient did have an LP completed, patient did have a normal glucose protein is elevated white count is elevated HSV DNA by PCR is pending. 3Patient has shown overall clinical improvement and will continue with IV acyclovir while waiting for the work-up to be completed and monitor clinical course closely Time with Patient: Less than 30
--- NOTE | 2022-04-23 14:40 | P.PN ---
Subjective Progress Note Date: 04/23/22 Principal diagnosis: Viral Meningitis Patient is a 71-year-old -[place] male with a past medical he significant for multiple myeloma on chemotherapy patient also have a history of recurrent viral meningitis thought to be related to HSV with the last episode in January 2022, presented to the hospital with the headache not feeling well patient subsequently have low-grade fever did have a positive CSF exam concerning for viral meningitis. On today's evaluation that is 04/23/2022, The patient denies having any fever or any chills, the patient is breathing comfortably on room air the patient denies having any chest pain shortness of breath or cough no abdominal pain no diarrhea the patient headache has resolved and is feeling better Objective - Vital Signs Vital signs: Vital Signs Temp 96.4 F L 04/23/22 08:09 Pulse 92 04/23/22 08:09 Resp 17 04/23/22 08:09 BP 120/68 04/23/22 08:09 Pulse Ox 96 04/23/22 05:00 FiO2 Intake & Output 04/22/22 04/23/22 04/23/22 18:59 06:59 18:59 Other: Voiding Method Toilet Toilet # Voids 2 1 # Bowel Movements 1 - Exam GENERAL DESCRIPTION: Elderly male lying in bed, no distress. No tachypnea or accessory muscle of respiration use. LUNGS: Unlabored breathing. Clear to auscultation anteriorly. No wheeze or crackle. HEART: S1, S2, regular rate and rhythm. No loud murmur ABDOMEN: Soft, no tenderness , guarding or rigidity, no organomegaly EXTREMITIES: No edema of feet. - Labs CBC & Chem 7: 04/23/22 05:25 04/23/22 05:25 Labs: Abnormal Lab Results - Last 24 Hours (Table) 04/20/22 04/21/22 04/22/22 Range/Units 18:57 05:37 17:22 RBC (4.40-5.60) X 10*6/uL Hgb (13.0-17.0) g/dL Hct (39.6-50.0) % MCH (27.0-32.0) pg RDW (11.5-14.5) % Anion Gap (10.00-18.00) mmol/L BUN (9.0-27.0) mg/dL POC Glucose (mg/dL) 270 H (70-110) mg/dL Calcium (8.7-10.3) mg/dL HSV II IgG Interpret POSITIVE A (NEGATIVE) HSV II DNA PCR DETECTED A (Not detected) 04/22/22 04/23/22 04/23/22 Range/Units 20:13 05:25 05:25 RBC 3.33 L (4.40-5.60) X 10*6/uL Hgb 11.1 L (13.0-17.0) g/dL Hct 32.3 L (39.6-50.0) % MCH 33.3 H (27.0-32.0) pg RDW 15.0 H (11.5-14.5) % Anion Gap 9.80 L (10.00-18.00) mmol/L BUN 7.5 L (9.0-27.0) mg/dL POC Glucose (mg/dL) 179 H (70-110) mg/dL Calcium 8.4 L (8.7-10.3) mg/dL HSV II IgG Interpret (NEGATIVE) HSV II DNA PCR (Not detected) 04/23/22 04/23/22 Range/Units 07:08 11:16 RBC (4.40-5.60) X 10*6/uL Hgb (13.0-17.0) g/dL Hct (39.6-50.0) % MCH (27.0-32.0) pg RDW (11.5-14.5) % Anion Gap (10.00-18.00) mmol/L BUN (9.0-27.0) mg/dL POC Glucose (mg/dL) 129 H 284 H (70-110) mg/dL Calcium (8.7-10.3) mg/dL HSV II IgG Interpret (NEGATIVE) HSV II DNA PCR (Not detected) Microbiology - Last 24 Hours (Table) 04/20/22 18:57 CSF Gram Stain - Preliminary Cerebral Spinal Fluid CSF Culture - Preliminary Assessment and Plan (1) Viral meningitis Current Visit: Yes Status: Acute Code(s): A87.9 - VIRAL MENINGITIS, UNSPECIFIED SNOMED Code(s): 46309111 Plan: 1patient presented to hospital with a low-grade fever headache in this patient who do have a 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 2patient did have an LP completed, patient did have a normal glucose protein is elevated white count is elevated HSV DNA by PCR Came back positive. 3Patient has shown overall clinical improvement With IV acyclovir ideally would have recommended continuation of IV acyclovir on discharge however the patient is out of the state and will like to go back to [place] tomorrow patient may be transition to oral Valtrex 1 g 3 times a day for 2 weeks with instruction to follow-up with ID physician when he gets back to [place] in view of recurrent episodes of viral meningitis and may benefit from a suppressive daily dose of Valtrex this was explained to the patient in layman terms and all questions concerns answered Time with Patient: Less than 30
[2022-04-23 17:26] LABS: Glucose,Whole Blood 184 mg/dL (70-110)
== END 2022-04-23 18:35 | disposition home or self-care (01) | DRG 75 ==
LOC: EC 09:38 → 5NMEDONC 13:13
PROVIDERS: ADMIT Internal Medicine; ATTEND Internal Medicine
PROC: 009U3ZX Drainage of Spinal Canal, Percutaneous Approach, Diagnostic (ICD-10-PCS; principal; 2022-04-20)
DX: A87.9 Viral meningitis, unspecified (principal); E87.1 Hypo-osmolality and hyponatremia; B00.9 Herpesviral infection, unspecified; Z20.822 Contact with and (suspected) exposure to COVID-19; E11.42 Type 2 diabetes mellitus with diabetic polyneuropathy; I10 Essential (primary) hypertension; E78.5 Hyperlipidemia, unspecified; E86.1 Hypovolemia; E87.6 Hypokalemia; F17.210 Nicotine dependence, cigarettes, uncomplicated; M43.16 Spondylolisthesis, lumbar region; Z79.4 Long term (current) use of insulin; Z79.899 Other long term (current) drug therapy; Z86.61 Personal history of infections of the central nervous system; Z88.6 Allergy status to analgesic agent
CPT/HCPCS: 36415; 70450; 72082; 80048; 80053; 82945; 83605; 83735; 84157; 85025; 85610; 85652; 85730; 86140; 86694; 86695; 86696; 87070; 87205; 87390; 87529; 87635; 89050; 93005; 96365; 96374; 96375; 99285